=== PATIENT | female | born 1945 | race Caucasian/White ===

== ENCOUNTER → 2024-02-14 11:48 | Outpatient (REF) | payer MEDICARE, OTHER, SELFPAY | LOC: RAD 11:48 | PROVIDERS: ATTENDING PHYSICIAN Family Medicine | DX: M54.50 Low back pain, unspecified (principal) | CPT/HCPCS: 72110 ==

== ENCOUNTER → 2024-05-08 06:57 | Outpatient (REF) | payer MEDICARE, OTHER, SELFPAY ==
[2024-05-08 08:23] LABS: ALT (SGPT) 19 U/L (0-35); AST (SGOT) 32 U/L (14-36); Albumin 4.4 g/dl (3.5-5.0); Alkaline Phosphatase 78 U/L (38-126); Blood Urea Nitrogen 15 mg/dl (7-17); Calcium 9.3 mg/dl (8.4-10.2); Carbon Dioxide 27 mmol/L (22-30); Chloride 104 mmol/L (98-107); Glucose 97 mg/dl (70-99); Potassium 4.2 mmol/L (3.5-5.1); Sodium 143 mmol/L (135-145); Total Bilirubin 1.1 mg/dl (0.2-1.3); Total Protein 6.7 g/dl (6.3-8.2); eGFR > 60.00
== END ==
LOC: RAD 06:57
PROVIDERS: ATTENDING PHYSICIAN Family Medicine
DX: M81.0 Age-related osteoporosis without current pathological fracture (principal); I10 Essential (primary) hypertension
CPT/HCPCS: 36415; 77080; 80053

== ENCOUNTER → 2025-06-05 06:55 | Outpatient (REF) | payer MEDICARE, OTHER, SELFPAY ==
[2025-06-05 07:49] LABS: Hematocrit 42.3 % (37.0-47.0); Hemoglobin 14.1 g/dL (12.0-16.0); Mean Corp Hgb Conc. 33.3 g/dL (33.0-37.0); Mean Corpuscular Volume 93.4 fL (81.0-99.0); Nucleated Red Blood Cells % 0 %; Platelet Count 330 10^3/uL (130-400); Red Cell Dist. Width 12.8 % (11.5-14.5)
[2025-06-05 08:40] LABS: ALT (SGPT) 22 U/L (0-35); AST (SGOT) 30 U/L (14-36); Albumin 4.3 g/dl (3.5-5.0); Alkaline Phosphatase 76 U/L (38-126); Blood Urea Nitrogen 11 mg/dl (7-17); Calcium 9.5 mg/dl (8.4-10.2); Carbon Dioxide 30 mmol/L (22-30); Chloride 102 mmol/L (98-107); Glucose 95 mg/dl (70-99); Potassium 4.2 mmol/L (3.5-5.1); Sodium 137 mmol/L (135-145); Total Protein 6.9 g/dl (6.3-8.2); eGFR 57.66
== END ==
LOC: REG 06:55
PROVIDERS: ATTENDING PHYSICIAN Family Medicine
DX: I10 Essential (primary) hypertension (principal); D72.819 Decreased white blood cell count, unspecified
CPT/HCPCS: 36415; 80053; 85025